=== PATIENT | female | born 1955 | race Caucasian/White ===

== ENCOUNTER 2018-12-04 21:47 | Emergency (ER) | payer OTHER ==
[2018-12-04] MEDS ORDERED: ONDANSETRON HCL 4 MG TAB.RAPDIS PO PRN (22:00)
--- NOTE | 2018-12-04 22:00 | ED Physician Documentation ---
General Adult - HISTORIAN Historian: patient - HPI Chief Complaint: General Adult Additional Information: 63yo female who takes APAP/ oxycodone 10/325 take 5 times a day for chronic lower back pain. Patient is not sure if she took all of her pain medication or if she took and extra dose. Patient had some narcan that she had gotten from a previous suspected overdose. Patient states that she was afraid that she had taken to much pain medication and subsequently took 4mg narcan spray. She is not sure when she did it but believes it was not to long ago. She then called 911 for paramedics. She is Patient is moving and states that she has been stressed out a lot. She has had a mild cough. Timing: still present - ROS CONST: denies: fever, chills - PAST HX Past History: other (CAD, chronic back pain) Immunizations: referred to PCP - SOCIAL HX Smoking History: other (unknown) Alcohol Use: none Drug Use: none - FAMILY HX Family History: No - REVIEWED ASSESSMENTS Nursing Assessment Reviewed: Yes Vitals Reviewed: Yes Progress - Progress Progress: Shortly after the patient arrived she did start complaining of some nausea. Initially in order was given to get the patient Zofran. However she stated that promethazine usually works better for her. The order was then changed to promethazine. Shortly thereafter before the medication could be given patient became agitated and stated that she was going to leave AMA. At the trying to talk to the patient to let her know what the initial plan was for her care she was still adamant about leaving. Patient left without signing any forms or getting any discharge instructions. General Adult Physical Exam - PHYSICAL EXAM GENERAL APPEARANCE: anxious RESPIRATORY: no resp distress, chest non-tender, breath sounds normal CVS: heart sounds normal, equal pulses, tachycardia ABDOMEN: soft, no organomegaly, normal bowel sounds, no abdominal bruit SKIN: warm/dry, normal color EXTREMITIES: no edema NEURO: oriented X3, motor nml, sensation nml, cognition normal. No: mood/affect nml (anxious) Discharge Clincal Impression: Nausea Referrals: Primary Doctor,No [Primary Care Provider] - 2 Days Additional Instructions: Patient left AMA prior to getting discharge instructions Condition: Stable Disposition: AGAINST MEDICAL ADVICE Decision to Admit: NO Date of Decison to Admit: 12/04/18 Decision Time: 23:20
[2018-12-04] MEDS: PROMETHAZINE HCL 25 MG/ML VIAL IM ONE (22:33)
== END 2018-12-04 22:35 | disposition left against medical advice (07) ==
LOC: ED 21:47
DX: R11.0 Nausea (principal); M54.5 Low back pain; G89.29 Other chronic pain
CPT/HCPCS: 96372; 99281; 99283